=== PATIENT | male | born 2000 | race Caucasian/White ===

== ENCOUNTER 2022-03-08 05:03 | Emergency (ER) | payer OTHER ==
[2022-03-08 05:42] LABS: HCT 46.9 % (42.0-52.0); HGB 15.9 g/dl (13.2-18.0); MCH 29.2 pg (25.0-31.0); MCHC 33.9 g/dL (32.0-36.0); MCV 86.2 fL (78.0-100.0); MPV 9.1 fL (6.0-9.5); RBC 5.44 M/uL (4.70-6.00); WBC 11.2 K/uL (4.0-10.5)
[2022-03-08 05:57] LABS: BUN/CREAT RATIO (CALC) 13.8 RATIO; CREATININE 0.87 mg/dL (0.67-1.17); POTASSIUM 3.9 mmol/L (3.5-5.1)
== END 2022-03-08 06:30 | disposition home or self-care (01) ==
LOC: FER 05:03
PROVIDERS: Emergency Medicine
DX: R07.89 Other chest pain (principal); K21.9 Gastro-esophageal reflux disease without esophagitis; Z28.310 Unvaccinated for COVID-19
CPT/HCPCS: 36415; 80048; 84484; 85379; 93005